=== PATIENT | male | born 1955 | race Caucasian/White ===

== ENCOUNTER → 2017-05-30 | Outpatient (CLI) | payer OTHER ==
[~2017-05-30] MED LIST: ACYCLOVIR200 MG/51 PO; ALEVE PM CAPLE1 EACH PO; AMLODIPINE BESY10 MG PO; ATENOLOL 100MG100 MG PO; AUGMENTIN 875-1 EACH PO; AUGMENTIN400 MG/53 PO; CURCUMIN; DEXAMETHASONE 44 M1; LEXAPRO 10 MG T10 M2 PO; ONDANSETRON HCL8 MG PO
--- NOTE | 2017-06-13 10:29 | ONC ---
[address] [address] RADIATION ONCOLOGY NOTE Name: MIKAYLA TERRAZAS Room: [facility]#: [id number] Admission: 05/30/17 Attend Phys: Ochoa Nieves MD Discharge: Date of : 59 Report #: [id number] THIS REPORT FOR: //name// CC: Ochoa Jackson DO DATE OF SERVICE: 05/30/2017 REFERRING PHYSICIANS: Meseret Billings MD; Esteban Jackson DO; Janeen Cruz DO. [facility] phone is [phone]. PRIMARY SITE AND HISTOPATHOLOGY: The patient received chemoradiotherapy for a stage OLIVIER base of tongue cancer. The radiation therapy was completed on 09/07/2016. INTERVAL NOTE: The patient said he is no longer using his gastric tube. He is eating soft foods such as mashed potatoes, scrambled eggs, yogurt and Jell-O and also chilli. He is edentulous. He was sought the dentist at [facility] and they did not feel that dentures would work out too well for him, but he is able to eat soft foods irregardless. SOCIAL HISTORY: Lives with his . Cigarettes, he does not smoke. MEDICATIONS: Atenolol 10 mg, Lexapro, Prilosec. REVIEW OF SYSTEMS: RESPIRATORY: The patient was not short of breath. GASTROINTESTINAL: The patient has a good appetite and he is taking all of his nourishment by mouth. PHYSICAL EXAMINATION: VITAL SIGNS: The patient's weight was 242.6 pounds on 05/30/2017 and then on 03/02/2017, the weight was 231.2 pounds. On 05/30/2017, blood pressure was 119/70, pulse 64, respirations 18. LYMPH NODES: The patient had no palpable cervical or supraclavicular lymphadenopathy. HEAD, EYES, EARS, NOSE AND THROAT: Mouth had no suspicious visible lesions or suspicious palpable lesions. On indirect laryngoscopy, there were no visible lesions in the base of tongue area. LABORATORY DATA: From 05/17/2017, sodium 140, potassium 4.3, BUN 19, creatinine 1.11. White blood cell count was 9.3, platelets are 24,000 and hemoglobin 12.8[place] [address] RADIATION ONCOLOGY NOTE Name: MIKAYLA TERRAZAS Room: [facility]#: [id number] Admission: 05/30/17 Attend Phys: Ochoa Nieves MD Discharge: Date of : 59 Report #: [id number] TSH was 2.531. RADIOLOGIC DATA: Neck and chest CT, there was no significant cervical lymphadenopathy. He did have some stable mouth asymmetry involving the base of tongue, which is thought to be secondary to post-therapeutic changes. Chest had no evidence of metastatic disease in the chest. ASSESSMENT AND PLAN: 1. History of base of tongue cancer- There is no evidence of base of tongue cancer at this time. Labwork will be ordered in about a month and he was asked to schedule a followup appointment to see me afterwards. 2. Depression- The patient was given a refill for Lexapro. He feels like that makes him feel better. 3. Nutrition- He is taking all of his food by mouth, so an order will be placed for Interventional Radiology to remove the gastric tube and for lab work to be checked in about a month. The patient was asked to schedule a follow up appointment with me after the lab work is completed. Thank you for allowing me to participate in the care of this patient. <ELECTRONICALLY SIGNED> By: Ochoa Nieves MD 06/13/17 1029 1249 [id number] Nieves MD /nt
== END ==
LOC: M.RTH 03:09
DX: Z08 Encounter for follow-up examination after completed treatment for malignant neoplasm (principal); F32.9 Major depressive disorder, single episode, unspecified; Z85.810 Personal history of malignant neoplasm of tongue

== ENCOUNTER → 2017-07-04 | Outpatient (CLI) | payer OTHER ==
--- NOTE | 2017-07-15 16:37 | ONC ---
[place] [address] RADIATION ONCOLOGY NOTE Name: MIKAYLA TERRAZAS Room: [facility]#: [id number] Admission: 07/04/17 Attend Phys: Ochoa Nieves MD Discharge: Date of : 59 Report #: [id number] THIS REPORT FOR: //name// CC: Ochoa Jackson DO DATE OF PROCEDURE: 07/04/2017 REFERRING PHYSICIANS: Include Dr. Evan Almeida; Linh Logan MD; Meseret Billings MD; and Esteban Jackson DO. [facility] phone is [phone]. PRIMARY SITE AND HISTOPATHOLOGY: The patient received chemoradiotherapy for a stage OLIVIER base of tongue cancer. The radiation therapy was completed on 09/07/2016. PROCEDURE: Nasopharyngolaryngoscopy. FINDINGS: On nasopharyngolaryngoscopy, after application of 2% viscous lidocaine orally and 2% viscous lidocaine to the right nostril, using a cotton swab. There were no visible lesions in the nasopharynx. There were no visible lesions in the oropharynx. There were no visible lesions involving the base of tongue. The true vocal cords were normally mobile bilaterally without any visible lesions. There was no evidence of head and neck cancer. Thank you for allowing me to participate in the care of this patient. <ELECTRONICALLY SIGNED> By: Ochoa Nieves MD 07/15/17 1637 1105 1242Ddeepa Nieves MD /nt
--- NOTE | 2017-07-15 17:14 | ONC ---
[address] [address] RADIATION ONCOLOGY NOTE Name: MIKAYLA TERRAZAS Room: [facility]#: [id number] Admission: 07/04/17 Attend Phys: Ochoa Nieves MD Discharge: Date of : 59 Report #: [id number] THIS REPORT FOR: //name// CC: Ochoa Jackson DO DATE OF SERVICE: 07/04/2017 REFERRING PHYSICIANS: Linh Soares MD; Meseret Billings MD and Esteban Jackson DO. [facility] phone is [phone]. PRIMARY SITE AND HISTOPATHOLOGY: The patient received chemoradiotherapy for a stage OLIVIER base of tongue cancer. The radiation therapy was completed on 09/07/2016. INTERVAL NOTE: The patient felt like he was eating well. His dentist wanted to postpone making new dentures at this point. The patient is edentulous. He eats soft foods such as mashed potatos, scrambled eggs, yogurt and Jell-O. His gastric tube has been removed. He is doing well in terms of eating by mouth. He has a good appetite. MEDICATIONS: Atenolol, Lexapro, Prilosec. REVIEW OF SYSTEMS: RESPIRATORY: The patient was not short of breath. GASTROINTESTINAL: The patient is eating well. He has a good appetite. PHYSICAL EXAMINATION: VITAL SIGNS: The patient weighed 238.6 pounds on 07/04/2017. The patient was 242.6 pounds on 05/30/2017 and the patient was 231.2 pounds on 03/02/2017. On 07/04/2017, blood pressure was 147/92, pulse 83, respirations 18, oxygen saturation 100% on room air. LYMPH NODES: The patient had no palpable cervical or supraclavicular lymphadenopathy. HEAD, EYES, EARS, NOSE, THROAT: Mouth had no suspicious visible lesions or suspicious palpable lesions. On fiberoptic nasopharyngolaryngoscopy after application of 2% viscous zuniscae5m orally and 2% viscous lidocaine to the right nostril, using a cotton swab, there were no visible lesions in the nasopharynx. There were no visible lesions in the posterior oropharynx. There were no visible lesions involving the base of tongue. The true vocal cords were normally mobile bilaterally. HEART: Had a [place] [address] RADIATION ONCOLOGY NOTE Name: MIKAYLA TERRAZAS Ana Luisa Room: [facility]#: [id number] Admission: 07/04/17 Attend Phys: Ochoa Nieves MD Discharge: Date of : 59 Report #: [id number] without murmur. LUNGS: were clear to auscultation. ABDOMEN: Soft and not tender with positive bowel sounds. LABORATORY DATA: From 06/28/2017, hemoglobin was 13.3, platelets were 243,000, white blood cell count was 7.4. Sodium was 139, potassium was 4.2, BUN was 14, creatinine 1.12, AST was 17, ALT was 13. TSH was 3.11. RADIOLOGIC DATA: Neck and chest CT from 05/01/2017 showed post-therapeutic changes. There is no evidence of cervical lymphadenopathy. There is no evidence of metastatic disease involving the chest. ASSESSMENT AND PLAN: 1. History of tongue cancer- There is no evidence of base of tongue cancer at this time. The patient is scheduled for lab work as well as a neck and chest CT on 08/24/2017 by his medical oncologist, Dr. Billings. He has an appointment with his medical oncologist, Dr. Billings, on 08/29/2017. I ordered lab work, which consists of a complete blood count, basic metabolic panel, TSH in 10/2017. The patient was asked to schedule a follow up appointment to see me afterwards. 2. Depression- The patient takes Lexapro and it appears to be effective with this issue. 3. Hypertension- The patient takes atenolol and that is managed by his referring physicians. 4. Possible dentures - the patient said that he is seeing his dentist in 3 months and that his dentist wanted to wait before making dentures. Thank you for allowing me to participate in the care of this patient. <ELECTRONICALLY SIGNED> By: Ochoa Nieves MD 07/15/17 1714 1111 1300Ochoa Nieves MD /nt
== END | disposition home or self-care (01) ==
LOC: M.RTH 02:07
DX: Z85.810 Personal history of malignant neoplasm of tongue (principal); I10 Essential (primary) hypertension; F32.89 Other specified depressive episodes; Z79.899 Other long term (current) drug therapy; Z98.890 Other specified postprocedural states

== ENCOUNTER → 2017-11-23 | Outpatient (CLI) | payer OTHER ==
--- NOTE | 2017-12-02 16:39 | ONC ---
[place] [address] RADIATION ONCOLOGY NOTE Name: MIKAYLA TERRAZAS Room: [facility]#: [id number] Admission: 11/23/17 Attend Phys: Ochoa Nieves MD Discharge: Date of : 59 Report #: [id number] THIS REPORT FOR: //name// CC: Ochoa Renteria MD DATE OF SERVICE: 11/23/2017 REFERRING PHYSICIANS: Janeen Cruz DO; Evan Almeida MD; Linh Miles MD; Meseret Billings MD; Esteban Jackson DO; Andi Rowe MD [facility] phone is [phone]. PRIMARY SITE AND HISTOPATHOLOGY: The patient received chemoradiotherapy for a stage OLIVIER base of tongue cancer. The radiation therapy was completed on 09/07/2016. PROCEDURE: Nasopharyngolaryngoscopy. FINDINGS: On nasopharyngolaryngoscopy, after application of 2% viscous lidocaine orally and 2% viscous lidocaine to the right nostril, using a cotton swab, there were no visible lesions in the nasopharynx and no visible lesions in the oropharynx and no visible lesions involving the base of tongue. The true vocal cords were normally mobile bilaterally without any visible lesions. There was no evidence of head and neck cancer. Thank you for allowing me to participate in the care of this patient. <ELECTRONICALLY SIGNED> By: Ochoa Nieves MD 12/02/17 1639 1249 [id number] Nieves MD /nt
--- NOTE | 2017-12-02 17:09 | ONC ---
[place] [address] RADIATION ONCOLOGY NOTE Name: MIKAYLA TERRAZAS Room: [facility]#: [id number] Admission: 11/23/17 Attend Phys: Ochoa Nieves MD Discharge: Date of : 59 Report #: [id number] THIS REPORT FOR: //name// CC: Ochoa Escobedo MD DATE OF SERVICE: 11/23/2017 REFERRING PHYSICIANS: Janeen Cruz DO; Evan Almeida MD; Linh Miles MD; Meseret Billings MD; Esteban Jackson DO; Andi Rowe MD [facility] phone is [phone]. PRIMARY SITE AND HISTOPATHOLOGY: The patient received chemoradiotherapy for a stage OLIVIER base of tongue cancer. The radiation therapy was completed on 09/07/2016. INTERVAL NOTE: The patient was found to have a liver metastasis, so the patient underwent a resection of the liver lesion on 10/23/2017 and the pathology revealed metastatic poorly differentiated squamous cell carcinoma that measured about 3.8 cm in greatest dimension with multiple foci of vascular invasion. The patient's medical oncologist is Dr. Billings and she was going to continue observing the patient. The patient felt like he recuperated reasonably well after the surgery. The patient is edentulous. His dentist wanted to postpone making new dentures at this point. He is eating soft foods such as potatoes, scrambled egg, yoghurt and Jell-O and is doing well with his appetite. MEDICATIONS: Include atenolol, Lexapro, Prilosec. REVIEW OF SYSTEMS: RESPIRATORY: The patient was not short of breath. GASTROINTESTINAL: The patient is eating well. He has a good appetite. PHYSICAL EXAMINATION: VITAL SIGNS: The patient weighed 236.6 pounds on 11/23/2017 and 238.6 pounds on 07/04/2017. On 11/23/2017, blood pressure was 120/78, pulse 71, respirations 18, oxygen saturation 97%. LYMPH NODES: The patient had no palpable cervical or [place] [address] RADIATION ONCOLOGY NOTE Name: MIKAYLA TERRAZAS Room: [facility]#: [id number] Admission: 11/23/17 Attend Phys: Ochoa Nieves MD Discharge: Date of : 59 Report #: [id number] HEAD, EYES, EARS, NOSE AND THROAT: Mouth had no suspicious visible lesions or suspicious palpable lesions. On fiberoptic nasopharyngolaryngoscopy, after application of 2% viscous lidocaine orally, 2% viscous lidocaine to the right nostril, using a cotton swab, there were no visible lesions in the nasopharynx and no visible lesions in the posterior pharynx. There were no visible lesions involving the base of tongue. The true vocal cords were normally mobile bilaterally. HEART: Had a regular rate and rhythm without murmur. LUNGS: were clear to auscultation. LABORATORY DATA: On 11/16/2017, hemoglobin 13.8, platelets 76,000, white blood cell count was 7.5 and. From 10/27/2017, sodium 138, potassium 4.3, BUN 11, creatinine 1.02 and on 10/27/2017, AST was 54, ALT was 142, alkaline phosphatase 117, and the TSH level on 11/16/2017 was 3.89. RADIOLOGIC DATA: From 09/10/2017 prior to his resection of the liver lesion, the patient had a PET/CT scan on 09/10/2017 and that revealed a development of a hypermetabolic lesion in the right hepatic lobe and there were post-treatment changes in the base of tongue. ASSESSMENT AND PLAN: 1. Base of tongue cancer- The patient developed a solitary metastasis in the liver and that was resected, and he is doing well after the operation. He has an appointment with his medical oncologist. At this point, medical oncology, is monitoring him. Lab work and a CT scan were ordered on 02/01/2018 by his medical oncologist. He has an appointment with his medical oncologist, Dr. Billings, on 02/06/2018. She ordered a neck and chest CT. I went ahead and ordered a complete metabolic panel and TSH level in April 2018 and I asked the patient to schedule a follow up appointment with me afterwards. 2. Hypertension- The patient takes atenolol and that is managed by his referring physicians. 3. Depression- The patient takes Lexapro and he feels that that is effective for him. Thank you for allowing me to participate in the care of this patient. <ELECTRONICALLY SIGNED> By: Ochoa Nieves MD 12/02/17 1709 1255 0431Ddeepa Nieves MD /nt
== END ==
LOC: M.RTH 11-09 09:30
DX: Z08 Encounter for follow-up examination after completed treatment for malignant neoplasm (principal); C02.9 Malignant neoplasm of tongue, unspecified; I10 Essential (primary) hypertension; F32.9 Major depressive disorder, single episode, unspecified

== ENCOUNTER 2018-01-26 11:26 | Inpatient (IN) | payer OTHER ==
[~2018-01-26] VITALS: Ht 177.8 cm; Wt 112.5 kg
--- NOTE | ~2018-01-26 | CON ---
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 HISTORY OF PRESENT ILLNESS: Radiation Oncology consultation has been requested in this 62-year-old male with a history of stage OLIVIER, p16 positive squamous cell carcinoma of the right base of tongue. He received definitive chemoradiation therapy, which was completed on 09/07/2016. He has been following with Dr. Billings and Dr. Nieves. His last followup visit with Dr. Nieves was 11/23/2017. Unfortunately, the patient was diagnosed with liver metastasis. He underwent partial hepatectomy 10/23/2017. Followup CT scans on 01/14/2018 at [facility] revealed new areas of metastatic disease in the bones, spleen, portocaval lymphadenopathy. No residual or recurrent tumor in the liver. The patient saw Dr. Billings and received his first dose of Keytruda and Zometa on 01/25/2018. He awakened early the next morning with profound myalgias and arthralgias. He was admitted to [facility] through the ED. This morning, he is much improved. He is hoping to be discharged today. PAST MEDICAL/SURGICAL HISTORY: History of p16 positive squamous cell carcinoma of the right base of tongue, metastatic to right neck, status post chemoradiation therapy completed 09/07/2016. Metastatic disease to the liver, status post partial hepatectomy 10/23/2017. The patient has ongoing symptoms of xerostomia and hypogeusia post radiation therapy. Hypertension and depression, diverticular disease, GERD, thyroid nodule, arthritis. Status post partial colectomy in 2009. SOCIAL HISTORY: The patient is . He is a never smoker. MEDICATIONS ON ADMISSION: Please see chart. ALLERGIES: No known drug allergies. REVIEW OF SYSTEMS: A 12-point review of systems is reviewed. CONSTITUTIONAL: [place] [address] CONSULTATION Name: MIKAYLA TERRAZAS Room: [address]#: [id number] Admission: 01/26/18 Attend Phys: Steve Bermudez, Discharge: 01/28/18 Date of : 59 Report #: [id number] HEENT: Hypogeusia and xerostomia. RESPIRATORY: Denies shortness of breath or cough. CARDIOVASCULAR: Denies chest pain or palpitations. GASTROINTESTINAL: Denies nausea or vomiting. No change in bowel habits. GENITOURINARY: No dysuria, hematuria or frequency. MUSCULOSKELETAL: Has significant midline back pain at the level of the waist. Also, has left lateral chest wall pain where he has known rib fractures. SKIN: No unusual bruises or rashes. NEUROLOGIC: No seizures, headaches, sensory or motor changes. HEMATOLOGIC: Negative. PSYCHIATRIC: Depression, decreased concentration. PHYSICAL EXAMINATION: GENERAL: The patient is a very pleasant, late middle-aged male in no acute distress. HEENT: Not examined. NECK: Without lymphadenopathy or thyromegaly. LUNGS: Clear to auscultation. No wheezes. HEART: Regular rate and rhythm without murmur. No premature beats. ABDOMEN: Soft, nontender. No masses or organomegaly. EXTREMITIES: No edema. LYMPH NODE SURVEILLANCE: Negative. MUSCULOSKELETAL: Point tenderness along the lower thoracic spine and left lateral ribs. IMPRESSION: Stage IV, p16 positive squamous cell carcinoma originally of the base of tongue, now metastatic to multiple sites. The patient is currently admitted with arthralgias and myalgias following his first dose of Keytruda and Zometa. He is doing much better today with medical therapy and will likely be discharged. RECOMMENDATIONS: From a radiation standpoint, he is very stable. We discussed the option of using palliative radiation to painful osseous metastatic disease should his pain level increase in intensity or duration. He is scheduled for a followup appointment with Dr. Nieves later this year. Thank you for the opportunity to see this patient in consultation. By: 1627 1720Tisha Garcia MD /kimo
[~2018-01-26 11:26] MED LIST changes: -AUGMENTIN 875-1 EACH PO; -AUGMENTIN400 MG/53 PO
[2018-01-26 11:30] VITALS: BP 161/95
[2018-01-26 12:08] LABS: HEMATOCRIT 43.4 % (42.0-52.0); HEMOGLOBIN 14.2 gm/dL (14.0-18.0); MCH 26.7 pg (26.0-34.0); MCHC 32.8 g/dL (28.0-37.0); MCV 81.5 fL (80.0-100.0); MPV 8.3 fl. (7.2-11.1); NUCLEATED RBCS 0 /100WBC; PLATELET COUNT* 211 thou/uL (150-400); RBC 5.33 mil/uL (4.50-6.00); RDW-CV 14.7 % (10.5-14.5); WBC 7.5 thou/uL (4.0-11.0)
[2018-01-26 12:12] LABS: ANION GAP 9 mmol/L (7-16); BUN 16 mg/dL (7-18); CALCIUM 9.6 mg/dL (8.5-10.1); CHLORIDE 100 mmol/L (98-107); CO2 25 mmol/L (21-32); CREATININE 1.4 mg/dL (0.6-1.3); GLUCOSE 155 mg/dL (70-99); POTASSIUM 3.9 mmol/L (3.5-5.1); SODIUM 134 mmol/L (136-145)
[2018-01-26 12:15] LABS: APTT 31.7 Seconds (25.0-31.3); INR 1.1; PROTIME 10.8 Seconds (9.20-11.50)
[2018-01-26 12:23] LABS: ALBUMIN 3.7 g/dL (3.4-5.0); ALKALINE PHOSPHATASE 128 U/L (46-116); NT-PRO BRAIN NAT PEPTIDE 633 pg/mL (<300); SGOT 40 U/L (15-37); SGPT 21 U/L (30-65); TOTAL BILIRUBIN 0.4 mg/dL (<0.1-1.0); TOTAL PROTEIN 7.6 g/dL (6.4-8.2); TROPONIN-I LEVEL <0.06 ng/mL (<0.06)
[2018-01-26 12:37] LABS: ABSOLUTE LYMPHOCYTES 0.2 thou/uL (0.8-5.3); ABSOLUTE NEUTROPHILS 7.4 thou/uL (1.6-8.1)
[2018-01-26 12:38] LABS: PLATELET ESTIMATE ADEQUATE
[2018-01-26 14:31] VITALS: BP 126/81
[2018-01-26 14:41] LABS: INFLUENZA A ANTIGEN None Detected (None Detect); INFLUENZA B ANTIGEN None Detected (None Detect)
[2018-01-26 20:00] VITALS: BP 125/77
[2018-01-26 22:44] LABS: URINE BILIRUBIN NEGATIVE (Negative); URINE BLOOD NEGATIVE (Negative); URINE CLARITY CLEAR; URINE COLOR YELLOW; URINE GLUCOSE-RANDOM NEGATIVE (Negative); URINE KETONES NEGATIVE (Negative); URINE LEUKOCYTES-REFLEX NEGATIVE (Negative); URINE NITRITE-REFLEX NEGATIVE (Negative); URINE PROTEIN NEGATIVE (Negative); URINE UROBILINOGEN 0.2 E.U./dl (0.2-1.0)
[2018-01-27] VITALS (8 sets, daily range): BP systolic 82–149; BP diastolic 43–95
[2018-01-27 04:39] LABS: HEMATOCRIT 37.5 % (42.0-52.0); MCH 26.5 pg (26.0-34.0); MCV 82.9 fL (80.0-100.0); MPV 8.6 fl. (7.2-11.1); RBC 4.53 mil/uL (4.50-6.00); RDW-CV 14.6 % (10.5-14.5); WBC 4.2 thou/uL (4.0-11.0)
[2018-01-27 05:20] LABS: CALCIUM 7.9 mg/dL (8.5-10.1); CREATININE 1.4 mg/dL (0.6-1.3); MAGNESIUM 1.9 mg/dL (1.8-2.4)
--- NOTE | 2018-01-27 11:59 | EKG ---
[place] [address] ELECTROCARDIOGRAM REPORT Name: NINIMIKAYLA MULTANI Room: [address] [place] .R.#: [id number] Admission: 01/26/18 Attend Phys: Steve Bermudez, Discharge: Date of : 59 Report #: [id number] THIS REPORT FOR: //name// [facility] ED Test Date: 2018-01-26 Test Time: 11:34:33 Pat Name: MIKAYLA TERRAZAS Department: Room: [facility] Gender: Formula Technician: Carmella ALVAREZ : 1955 Requested By: César Garzon Order Number: [id number] MD: Eduardo Fox Measurements Intervals [place] Rate: 125 P: 27 ME: 166 QRS: 3 QRSD: 101 T: 17 QT: 291 QTc: 420 Interpretive Statements Sinus tachycardia Consider inferior infarct No previous ECG available for comparison Electronically Signed On 01-27-2018 11:59:40 CDT by Eduardo Fox [email or web address] <ELECTRONICALLY SIGNED> By: Eduardo Fox MD, [facility] 01/27/18 1159 1134 1134 Eduardo Fox MD, [facility] /EPI
[2018-01-28 04:20] VITALS: BP 128/77
[2018-01-28 04:54] LABS: HEMATOCRIT 38.5 % (42.0-52.0); HEMOGLOBIN 12.5 gm/dL (14.0-18.0); MCH 26.5 pg (26.0-34.0); MCHC 32.5 g/dL (28.0-37.0); MCV 81.7 fL (80.0-100.0); MPV 8.7 fl. (7.2-11.1); RBC 4.72 mil/uL (4.50-6.00); RDW-CV 14.6 % (10.5-14.5); WBC 5.1 thou/uL (4.0-11.0)
[2018-01-28 05:07] LABS: ALBUMIN 3.1 g/dL (3.4-5.0); CALCIUM 7.9 mg/dL (8.5-10.1); CREATININE 1.2 mg/dL (0.6-1.3); POTASSIUM 3.7 mmol/L (3.5-5.1); TOTAL BILIRUBIN 0.4 mg/dL (<0.1-1.0); TOTAL PROTEIN 6.7 g/dL (6.4-8.2)
[2018-01-28 08:07] VITALS: BP 123/76
--- NOTE | 2018-01-28 10:35 | CON ---
[address] [address] CONSULTATION Name: NINIMIKAYLA E Room: [address] IN [facility]#: [id number] Admission: 01/26/18 Attend Phys: Steve Bermudez, Discharge: Date of : 59 Report #: [id number] THIS REPORT FOR: //name// CC: Raul Bermudez DATE OF SERVICE: 01/27/2018 ATTENDING PHYSICIAN: Steve Bermudez MD. REASON FOR CONSULTATION: Possible pneumonia. HISTORY OF PRESENT ILLNESS: The patient is a 62-year-old white man with diagnosis of carcinoma of the tongue treated with radiation and chemotherapy, subsequently diagnosed to have hepatic metastasis, requiring partial hepatectomy. He is found to have bone metastases and he has received chemotherapy with Keytruda and Zometa. On 01/25/2018, the patient is admitted with some shortness of breath, weakness, low-grade fevers and he is started on Zosyn and Rocephin. The Rocephin discontinued and he substituted for meropenem. Currently, the patient is alert, comfortable, was medicated for some pain. PAST MEDICAL HISTORY: History of hypertension. Diverticulitis. Previous bowel resection. Status post segmental hepatic resection. Chemotherapy for metastatic squamous cell carcinoma of the tongue. Bone metastasis detected. DRUG ALLERGIES: None listed. MEDICATIONS: The patient is currently on treatment with meropenem 1 gram IV every 8 hours, Zosyn 3.375 grams IV every 8 hours, aspirin, pantoprazole, hydrocodone p.r.n., citalopram, naproxen b.i.d., amlodipine, atenolol, enoxaparin subq, p.r.n. ondansetron. SOCIAL HISTORY: milk pickup driver, . REVIEW OF SYSTEMS: See H and P and as above. PHYSICAL EXAMINATION: GENERAL: Well-developed, overweight man. VITAL SIGNS: Temperature on admission 99.3, pulse 123, temperature down to 98.2, pulse 82, respirations 18, BP 82/43. On admission, the BP was 161/95. HEENT: Head normocephalic, atraumatic. Pupils reactive. Mouth edentulous. No thrush. NECK: Supple. LUNGS: A few basilar crackles. HEART: S1, S2. No gallop or murmur. ABDOMEN: Infracostal right-sided surgical [place] [address] CONSULTATION Name: MIKAYLA TERRAZAS Room: [address]#: [id number] Admission: 01/26/18 Attend Phys: Steve Bermudez, Discharge: Date of : 59 Report #: [id number] resection, soft, no masses or megaly. EXTREMITIES: No pretibial edema. NEUROLOGIC: Grossly within normal limits. LABORATORY DATA: Sodium 134, potassium 3.9, BUN 16, creatinine 1.4, glucose 155. SGOT 40, total bilirubin 0.4. Alkaline phosphatase 128, SGPT 21. Lactic acid 1.3. Protime 10.8. WBC 7500, hemoglobin 14.2 g/dL, platelets 211,000. White blood cell count differential revealed 94% segmented neutrophils. Rapid influenza A and B negative. Urinalysis negative. Blood cultures are pending at the time of this dictation. RADIOLOGY EVALUATION: A CT scan of the chest PE protocol revealed no pulmonary embolism, some minor basilar pulmonary infiltrate, atelectasis. Small left pleural effusion. Partial right hepatic resection with an area 5 cm near the resection site that may be some metastatic lesion. There is evidence of metastatic lesions to the thoracic spine vertebral bodies suspicious for lytic metastatic lesions. ASSESSMENT: 1. Possible aspiration pneumonia. 2. Metastatic squamous cell carcinoma of the base of the tongue with a liver metastasis requiring segmental hepatic resection and evidence of bone metastases. 3. 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 4. Low blood pressure. SUGGESTIONS: Recommend discontinue meropenem. Continue Zosyn for possible aspiration pneumonia. Check ESR, CRP, procalcitonin. Dr. Bermudez, thank you for requesting my suggestions. <ELECTRONICALLY SIGNED> By: Jamie Oviedo MD 01/28/18 1035 0456 Shagufta Oviedo MD /kimo
[2018-01-28] MEDS ORDERED: AUGMENTIN 875-1 EACH PO (11:16)
[2018-01-28 11:17] VITALS: BP 123/76
[2018-01-28] MEDS ORDERED: AUGMENTIN400 MG/53 PO ×2 (11:43→11:56)
[2018-01-28 12:48] VITALS: BP 127/78
[2018-01-30 02:11] LABS: ADENOVIRUS Negative (Negative); INFLUENZA A Negative (Negative); INFLUENZA B Negative (Negative); METAPNEUMOVIRUS Negative (Negative); PARAINFLUENZA 1 Negative (Negative); PARAINFLUENZA 2 Negative (Negative); PARAINFLUENZA 3 Negative (Negative); RHINOVIRUS Negative (Negative); RSV A Negative (Negative); RSV B Negative (Negative)
== END 2018-01-28 16:15 | disposition home or self-care (01) | DRG 177 ==
LOC: M.ERS 11:26 → M.2W 13:55 → M.TBA-ER 13:55 → M.2W 14:42
PROVIDERS: Emergency Medicine Emergency Medical Services; ADMIT Family Medicine
DX: J15.6 Pneumonia due to other Gram-negative bacteria (principal); J96.01 Acute respiratory failure with hypoxia; C78.7 Secondary malignant neoplasm of liver and intrahepatic bile duct; C79.51 Secondary malignant neoplasm of bone; E87.2 Acidosis; C79.89 Secondary malignant neoplasm of other specified sites; J98.11 Atelectasis; J44.1 Chronic obstructive pulmonary disease with (acute) exacerbation; J44.0 Chronic obstructive pulmonary disease with (acute) lower respiratory infection; C78.39 Secondary malignant neoplasm of other respiratory organs; J90 Pleural effusion, not elsewhere classified; T50.995A Adverse effect of other drugs, medicaments and biological substances, initial encounter; Y92.89 Other specified places as the place of occurrence of the external cause; I10 Essential (primary) hypertension; I95.9 Hypotension, unspecified; C01 Malignant neoplasm of base of tongue; K21.9 Gastro-esophageal reflux disease without esophagitis; M19.90 Unspecified osteoarthritis, unspecified site; K57.90 Diverticulosis of intestine, part unspecified, without perforation or abscess without bleeding; M79.10 Myalgia, unspecified site; Z92.21 Personal history of antineoplastic chemotherapy; Z92.3 Personal history of irradiation; Z90.49 Acquired absence of other specified parts of digestive tract; Z79.899 Other long term (current) drug therapy

== ENCOUNTER 2018-02-07 18:53 | Emergency (ER) | payer OTHER ==
[~2018-02-07] VITALS: Ht 177.8 cm; Wt 110.7 kg
[~2018-02-07 18:53] MED LIST changes: +AUGMENTIN 875-1 EACH PO; +AUGMENTIN400 MG/53 PO
[2018-02-07 19:17] LABS: HEMATOCRIT 37.7 % (42.0-52.0); HEMOGLOBIN 12.2 gm/dL (14.0-18.0); MCH 26.4 pg (26.0-34.0); MCHC 32.3 g/dL (28.0-37.0); MCV 81.8 fL (80.0-100.0); MPV 8.4 fl. (7.2-11.1); NUCLEATED RBCS 0 /100WBC; PLATELET COUNT* 227 thou/uL (150-400); RBC 4.62 mil/uL (4.50-6.00); RDW-CV 14.8 % (10.5-14.5); WBC 8.8 thou/uL (4.0-11.0)
[2018-02-07 19:23] LABS: ANION GAP 7 mmol/L (7-16); BUN 23 mg/dL (7-18); CALCIUM 8.9 mg/dL (8.5-10.1); CHLORIDE 105 mmol/L (98-107); CO2 29 mmol/L (21-32); CREATININE 1.1 mg/dL (0.6-1.3); GLUCOSE 92 mg/dL (70-99); SODIUM 141 mmol/L (136-145)
[2018-02-07 19:26] LABS: APTT 29.2 Seconds (25.0-31.3); PROTIME 10.5 Seconds (9.20-11.50)
[2018-02-07 19:34] LABS: ALBUMIN 3.4 g/dL (3.4-5.0); ALKALINE PHOSPHATASE 165 U/L (46-116); NT-PRO BRAIN NAT PEPTIDE 50 pg/mL (<300); SGOT 69 U/L (15-37); SGPT 27 U/L (30-65); TOTAL BILIRUBIN 0.4 mg/dL (<0.1-1.0); TROPONIN-I LEVEL <0.06 ng/mL (<0.06)
[2018-02-07 19:44] LABS: ABSOLUTE BASOPHILS 0.1 thou/uL (0.0-0.2); ABSOLUTE EOSINOPHILS 0.2 thou/uL (0.0-0.7); ABSOLUTE LYMPHOCYTES 0.9 thou/uL (0.8-5.3); ABSOLUTE MONOCYTES 0.8 thou/uL (0.0-1.2); ABSOLUTE NEUTROPHILS 6.9 thou/uL (1.6-8.1)
[2018-02-07 19:45] LABS: LARGE PLATELETS RARE; PLATELET ESTIMATE ADEQUATE
[2018-02-07 20:27] VITALS: BP 139/73
--- NOTE | 2018-02-08 12:36 | EKG ---
[place] [address] ELECTROCARDIOGRAM REPORT Name: NINIMIKAYLA MULTANI Ana Luisa Room: [facility]#: [id number] Admission: 02/07/18 Attend Phys: Discharge: 02/07/18 Date of : 59 Report #: [id number] THIS REPORT FOR: //name// [facility] ED Test Date: 2018-02-07 Test Time: 18:59:17 Pat Name: MIKAYLA TERRAZAS Department: Room: Gender: Engagement Executive: Db RAMOS : 1955 Requested By: William Mack Order Number: [id number] MD: Daniele Crane Measurements Intervals [place] Rate: 87 P: 33 UT: 230 QRS: 36 QRSD: 109 T: 18 QT: 358 QTc: 431 Interpretive Statements Sinus rhythm Prolonged UT interval Compared to ECG 01/26/2018 11:34:33 Sinus tachycardia no longer present Electronically Signed On 02-08-2018 12:36:14 STEAM ENGINEER by Daniele Crane [email or web address] <ELECTRONICALLY SIGNED> By: Daniele Crane MD, [facility] 02/08/18 1236 58 58 Daniele Crane MD, FACC /EPI
== END 2018-02-07 20:30 | disposition home or self-care (01) ==
LOC: M.ERS 18:53
PROVIDERS: Emergency Medicine
DX: J18.9 Pneumonia, unspecified organism (principal); I10 Essential (primary) hypertension; Z85.89 Personal history of malignant neoplasm of other organs and systems

== ENCOUNTER 2018-09-07 13:59 | Inpatient (IN) | payer OTHER ==
[~2018-09-07] VITALS: Ht 177.8 cm; Wt 113.2 kg
[2018-09-07 14:03] VITALS: BP 139/78
[2018-09-07] MEDS ORDERED: OXYCODONE HCL E20 MG PO (14:08)
[2018-09-07] MEDS ORDERED: ATIVAN0.5 MG PO (14:08)
[2018-09-07] MEDS ORDERED: SYNTHROID50 MCG PO (14:09)
[2018-09-07] MEDS ORDERED: OXYCODONE HCL 55 MG PO (14:09)
[2018-09-07] MEDS ORDERED: PROAIR HFA8.5 GM INH (14:09)
[2018-09-07] MEDS ORDERED: FLEXERIL PO (14:10)
[2018-09-07] MEDS ORDERED: ONDANSETRON ODT8 MG PO (14:10)
[2018-09-07] MEDS ORDERED: BIOTENE1000 ML BUCCAL (14:11)
[2018-09-07] MEDS ORDERED: OMEPRAZOLE20 M2 PO (14:11)
[2018-09-07 14:59] LABS: URINE BILIRUBIN NEGATIVE (Negative); URINE BLOOD NEGATIVE (Negative); URINE CLARITY CLEAR; URINE COLOR YELLOW; URINE GLUCOSE-RANDOM NEGATIVE (Negative); URINE KETONES NEGATIVE (Negative); URINE LEUKOCYTES-REFLEX NEGATIVE (Negative); URINE NITRITE-REFLEX NEGATIVE (Negative); URINE PROTEIN NEGATIVE (Negative); URINE UROBILINOGEN 0.2 E.U./dl (0.2-1.0)
[2018-09-07 15:01] LABS: ANION GAP 10 mmol/L (7-16); BUN 13 mg/dL (7-18); CALCIUM 8.2 mg/dL (8.5-10.1); CHLORIDE 105 mmol/L (98-107); CO2 25 mmol/L (21-32); CREATININE 0.9 mg/dL (0.6-1.3); GLUCOSE 121 mg/dL (70-99); POTASSIUM 3.8 mmol/L (3.5-5.1); SODIUM 140 mmol/L (136-145)
[2018-09-07 15:02] LABS: HEMATOCRIT 20.1 % (42.0-52.0); MCH 30.4 pg (26.0-34.0); MCHC 33.9 g/dL (28.0-37.0); MCV 89.6 fL (80.0-100.0); MPV 8.1 fl. (7.2-11.1); NUCLEATED RBCS 5 /100WBC; PLATELET COUNT* 130 thou/uL (150-400); RBC 2.25 mil/uL (4.50-6.00); RDW-CV 23.4 % (10.5-14.5); WBC 2.4 thou/uL (4.0-11.0)
[2018-09-07 15:09] LABS: HEMOGLOBIN 6.8 gm/dL (14.0-18.0)
[2018-09-07 15:13] LABS: ALBUMIN 3.5 g/dL (3.4-5.0); ALKALINE PHOSPHATASE 275 U/L (46-116); LIPASE 149 U/L (73-393); SGOT 14 U/L (15-37); SGPT 19 U/L (30-65); TOTAL BILIRUBIN 0.6 mg/dL (<0.1-1.0); TROPONIN-I LEVEL <0.06 ng/mL (<0.06)
[2018-09-07 15:39] LABS: ABSOLUTE LYMPHOCYTES 0.4 thou/uL (0.8-5.3); ABSOLUTE MONOCYTES 0.1 thou/uL (0.0-1.2); ABSOLUTE NEUTROPHILS 1.9 thou/uL (1.6-8.1)
[2018-09-07 15:41] LABS: PLATELET ESTIMATE DECREASED
[2018-09-07 15:42] LABS: ANISOCYTOSIS 2+
[2018-09-07 18:30] VITALS: BP 113/73; BP 121/73; BP 125/79; BP 134/67
[2018-09-07 19:35] VITALS: BP 125/79
[2018-09-07 20:00] VITALS: BP 135/75
[2018-09-08] VITALS: BP 125/79
[2018-09-08 04:11] VITALS: BP 121/79
[2018-09-08 04:45] LABS: ABSOLUTE EOSINOPHILS 0.1 thou/uL (0.0-0.7); ABSOLUTE LYMPHOCYTES 0.4 thou/uL (0.8-5.3); ABSOLUTE MONOCYTES 0.3 thou/uL (0.0-1.2); ABSOLUTE NEUTROPHILS 1.4 thou/uL (1.6-8.1); BASOPHILS 0.7 %; EOSINOPHILS 2.7 %; HEMATOCRIT 21.7 % (42.0-52.0); HEMOGLOBIN 7.3 gm/dL (14.0-18.0); MCH 29.9 pg (26.0-34.0); MCHC 33.7 g/dL (28.0-37.0); MCV 88.9 fL (80.0-100.0); MPV 8.4 fl. (7.2-11.1); NUCLEATED RBCS 3 /100WBC; PLATELET COUNT* 118 thou/uL (150-400); POLYS 62.6 %; RBC 2.44 mil/uL (4.50-6.00); RDW-CV 21.1 % (10.5-14.5); WBC 2.2 thou/uL (4.0-11.0)
[2018-09-08 05:05] LABS: CREATININE 0.7 mg/dL (0.6-1.3); POTASSIUM 4.1 mmol/L (3.5-5.1)
--- NOTE | 2018-09-08 07:59 | NUR ---
PT WAS ADMITTED TO ROOM 232 DURING THIS SHIFT; VSS, A+OX4, ROOM AIR, SR+1STDEG ON THE MONITOR. HE IS ABLE TO COMMUNICATE HIS NEEDS TO STAFF EFFECTIVELY. CURRENT PAIN MEDICATION REGIMEN HAS BEEN ADEQUATE FOR CONTROLLING HIS PAIN UP TO THIS TIME. HEME/ONC CONSULTED.
[2018-09-08 08:00] VITALS: BP 146/85
[2018-09-08 12:00] VITALS: BP 107/66
[2018-09-08 16:00] VITALS: BP 113/77
--- NOTE | 2018-09-08 19:07 | NUR ---
REVEIVED REPORT AND ASSUMED CARE AT 0700. PT DENIES COMPLAINTS OF PAIN. ASSESSMENT COMPLETED CHARTED. VSS. CARDIAC MONITORING IN PLACE. PT UP AD THAD IN ROOM, ON RA. HOURLY ROUNDING COMPLETED AND ALL NEEDS MET.
[2018-09-08 20:49] VITALS: BP 108/63
[2018-09-09] VITALS (8 sets, daily range): BP systolic 97–149; BP diastolic 45–80
[2018-09-09 05:35] LABS: HEMOGLOBIN 7.2 gm/dL (14.0-18.0); MPV 8.2 fl. (7.2-11.1); WBC 2.1 thou/uL (4.0-11.0)
[2018-09-09 05:37] LABS: HEMATOCRIT 21.5 % (42.0-52.0); MCH 30.1 pg (26.0-34.0); MCHC 33.6 g/dL (28.0-37.0); MCV 89.7 fL (80.0-100.0); RBC 2.4 mil/uL (4.50-6.00); RDW-CV 21.5 % (10.5-14.5)
--- NOTE | 2018-09-09 05:44 | NUR ---
PT IS ABLE TO COMMUNICATE HIS NEEDS TO STAFF EFFECTIVELY. HE HAS DENIED THE NEED FOR PAIN MEDICATION UP TO THIS TIME. HEME/ONC FOLLOWING. POSSIBLE DISCHARGE TODAY.
--- NOTE | 2018-09-09 12:00 | NUR ---
MET WITH PT TO DISCUSS HOME SITUATION/DC PLANNING. PT LIVES WITH . HE IS INDEPENDENT AND ACTIVE. USES NO EQUIPMENT OR HOME CARE. PT IS CURRENTLY GETTING CHEMO THRU DR METCALF IN [place]. PT DENIES DC NEEDS.
--- NOTE | 2018-09-09 13:30 | EKG ---
[place] [address] ELECTROCARDIOGRAM REPORT Name: MIKAYLA TERRAZAS Room: [address] ADM IN .R.#: [id number] Admission: 09/07/18 Attend Phys: Lory Dalal MD Discharge: Date of : 59 Report #: [id number] THIS REPORT FOR: //name// [facility] ED Test Date: 2018-09-07 Test Time: 14:36:06 Pat Name: MIKAYLA TERRAZAS Department: Room: [facility] Gender: M Director Hair: MS : 1955 Requested By: César Garzon Order Number: [id number] MD: Juan Pablo Laird Measurements Intervals [place] Rate: 99 P: 38 NC: 188 QRS: 43 QRSD: 103 T: 29 QT: 326 QTc: 419 Interpretive Statements Sinus rhythm Abnormal R-wave progression, early transition Compared to ECG 02/07/2018 18:59:17 First degree AV block no longer present Electronically Signed On 09-09-2018 13:29:44 CDT by Juan Pablo Laird [email or web address] <ELECTRONICALLY SIGNED> By: Juan Pablo Laird MD, [facility] 09/09/18 1329 [id number] Juan Pablo Laird MD, [facility] /EPI
[2018-09-09] MEDS ORDERED: VITAMIN B-12500 MCG PO (14:25)
[2018-09-09] MEDS ORDERED: PRENATAL PO (14:25)
[2018-09-09] MEDS ORDERED: ATENOLOL 100MG100 MG PO (16:59)
[2018-09-09] MEDS ORDERED: ATENOLOL 50MG T50 M1 PO (18:02)
== END 2018-09-09 19:13 | disposition home or self-care (01) | DRG 812 ==
LOC: M.ERS 13:59 → M.2W 15:40 → M.TBA-ER 15:40 → M.2W 19:40
PROVIDERS: Emergency Medicine Emergency Medical Services; ADMIT Family Medicine
PROC: 30233N1 Transfusion of Nonautologous Red Blood Cells into Peripheral Vein, Percutaneous Approach (ICD-10-PCS; principal; 2018-09-07)
DX: D64.81 Anemia due to antineoplastic chemotherapy (principal); C79.51 Secondary malignant neoplasm of bone; I10 Essential (primary) hypertension; G89.3 Neoplasm related pain (acute) (chronic); C02.9 Malignant neoplasm of tongue, unspecified; E53.8 Deficiency of other specified B group vitamins; T45.1X5A Adverse effect of antineoplastic and immunosuppressive drugs, initial encounter; Z92.21 Personal history of antineoplastic chemotherapy; Z92.3 Personal history of irradiation; Z87.01 Personal history of pneumonia (recurrent); Z90.49 Acquired absence of other specified parts of digestive tract; Z79.899 Other long term (current) drug therapy; Z87.891 Personal history of nicotine dependence; Z79.891 Long term (current) use of opiate analgesic; Y92.89 Other specified places as the place of occurrence of the external cause

== ENCOUNTER → 2019-08-20 | Outpatient (CLI) | payer OTHER ==
[~2019-08-20] VITALS: Ht 177.8 cm; Wt 107.5 kg
[~2019-08-20] MED LIST changes: +ATENOLOL 50MG T50 M1 PO; +ATIVAN0.5 MG PO; +BIOTENE1000 ML BUCCAL; +FLEXERIL PO; +OMEPRAZOLE20 M2 PO; +ONDANSETRON ODT8 MG PO; +OXYCODONE HCL 55 MG PO; +OXYCODONE HCL E20 MG PO; +PRENATAL PO; +PROAIR HFA8.5 GM INH; +SYNTHROID50 MCG PO; +VITAMIN B-12500 MCG PO
[2019-08-20 10:47] LABS: HEMATOCRIT 34.4 % (42.0-52.0); HEMOGLOBIN 11.3 gm/dL (14.0-18.0); MCH 28.7 pg (26.0-34.0); MCHC 32.7 g/dL (28.0-37.0); MCV 87.8 fL (80.0-100.0); MPV 8.4 fl. (7.2-11.1); RBC 3.92 mil/uL (4.50-6.00); RDW-CV 22.3 % (10.5-14.5); WBC 8.5 thou/uL (4.0-11.0)
[2019-08-20 10:56] LABS: CALCIUM 8.5 mg/dL (8.5-10.1); CREATININE 0.9 mg/dL (0.6-1.3); POTASSIUM 4.6 mmol/L (3.5-5.1)
[2019-08-20 11:01] LABS: ALBUMIN 3.4 g/dL (3.4-5.0); TOTAL BILIRUBIN 0.7 mg/dL (<0.1-1.0); TOTAL PROTEIN 7.2 g/dL (6.4-8.2)
[2019-08-20 11:03] LABS: APTT 30.7 Seconds (25.0-31.3); INR 1.1; PROTIME 11.1 Seconds (9.20-11.50)
[2019-08-20 11:20] VITALS: BP 104/64
[2019-08-20 13:30] VITALS: BP 114/74
[2019-08-20 14:23] VITALS: BP 114/74
== END | disposition home or self-care (01) ==
LOC: M.INT 09:18
PROVIDERS: Radiology Diagnostic Radiology
DX: Z45.2 Encounter for adjustment and management of vascular access device (principal); C01 Malignant neoplasm of base of tongue; I10 Essential (primary) hypertension; Z98.890 Other specified postprocedural states; Z79.899 Other long term (current) drug therapy; Z98.0 Intestinal bypass and anastomosis status; Z87.01 Personal history of pneumonia (recurrent); Z87.19 Personal history of other diseases of the digestive system; Z85.818 Personal history of malignant neoplasm of other sites of lip, oral cavity, and pharynx

== ENCOUNTER → 2020-07-23 | Outpatient (CLI) | payer MEDICAID | LOC: M.MRI 14:00 | PROVIDERS: ATTEND Internal Medicine Hematology & Oncology | DX: C01 Malignant neoplasm of base of tongue (principal); R41.82 Altered mental status, unspecified; G98.8 Other disorders of nervous system ==